=== PATIENT | male | born 1975 | race Caucasian/White ===

== ENCOUNTER 2024-11-04 09:00 | Emergency (ER) | payer BC, OTHER, SELFPAY ==
[2024-11-04 09:15] VITALS: BP 188/99
--- NOTE | 2024-11-04 10:16 | ED.GENMED ---
History of Present Illness
General
Chief Complaint: Musculo-Skeletal Complaint
Source: patient
Time Seen by Provider: 11/04/24 10:02
History of Present Illness
History of Present Illness:
49-year-old male with no significant past medical history presenting to the emergency department for evaluation of left elbow pain and decreased range of motion after he accidentally tripped last night stating he fell onto the left elbow. Patient
states that he was having pain and tenderness with the range of motion. Denies any history of previous injury or surgery. No focal weakness or numbness. No other injuries sustained.
Past History
Past History
ED Past Medical History: None
ED Past Surgical History: None
Social History
Tobacco: Non-smoker
Alcohol: Occasional
Drug: None
Personal: Single
Living: with family
Review of Systems
Review of Systems
All Other Systems: ROS reviewed and negative except as documented in HPI and ROS
Phy Exam
Physical Exam
Physical Exam:
GENERAL: Alert , in no apparent distress
EYE: conjunctiva clear
Head: Normocephalic atraumatic
NECK: Supple,
ENT: mmm.
LUNGS: no acute respiratory distress
NEUROLOGICAL: Alert and oriented
SKIN: Warm and dry, skin intact.
MUSCULOSKELETAL: Left upper extremity: No obvious deformity however there is some mild soft tissue swelling just over the olecranon with tenderness at the proximal portion of the olecranon. Patient is able to extend elbow to about 45 degrees and
then starts to develop pain. No pain with pronation or supination. Extremity is otherwise warm and well-perfused and neurovascularly intact
PSYCH: Normal and appropriate interaction.
Scores
Heart Failure Risk
Heart Failure Risk Score: Not Applicable
Heart Score for Chest Pain Patients
STEMI patient?: Not applicable
Withdrawal Assessment of Alcohol
Withdrawal Assessment Completed?: Not applicable
Course
Orders/Labs/Results
Orders:
Orders
11/04/24 09:17
Elbow, 3 view, Left [CR Elbow - Left Min 3 Views ] Urgent
Comment:
Reason For Exam: pain, fall
11/04/24 10:16
Sling Left-Treatment ONCE
Vital Signs
Initial and Last Documented VS:
Initial Vital Signs
Temp Pulse Resp BP Pulse Ox
98.4 F 72 18 188/99 100
11/04/24 09:15 11/04/24 09:15 11/04/24 09:15 11/04/24 09:15 11/04/24 09:15
Last Documented Vital Signs
Temp Pulse Resp BP Pulse Ox
98.4 F 72 18 188/99 100
11/04/24 09:15 11/04/24 09:15 11/04/24 09:15 11/04/24 09:15 11/04/24 09:15
MDM/Problems Addressed
Differential Diagnosis Includes:
Sprain, contusion, fracture
MDM/Problems Addressed:
49-year-old male presenting to the emergency department for evaluation of left elbow pain following an accidental trip and fall last night, diminished range of motion this morning. X-ray ordered from triage which does show a joint effusion but no
obvious fracture seen. Discussed these results with patient possibility for an occult fracture. Will place in sling. NSAIDs/Tylenol as needed for pain. Information for orthopedics provided. Stable for discharge home.
*Radiology
Radiology exam reviewed: preliminary read by ED provider
*Pulse Oximetry
Patient hypoxic: no
*Critical Care Note
Total Time (30-74mins, 75-104mins- exclusive of procedures): Not Applicable
ED Attending Note
-
Portions of this chart may have been created with voice recognition software.� Occasional wrong word or��sound alike� substitutions may have occurred due to the inherent limitations of voice recognition software.
Discharge Plan
Departure
Patient Disposition: Home (Routine Discharge)
Date of Disposition: 11/04/24
Time of Disposition: 10:16
Patient with high blood pressure during this ER visit?: Yes
Discharge Problem:
Effusion of elbow joint, left
Instructions: Elbow Sprain (DC)
Referrals:
Livan Mi MD [Active] - (Ortho - Please call for appointment)
Temitope Bauman MD [Family Provider] -
Interventions
Interventions:
*Risk Screen - Suicide Last Done: 11/04/24 09:15
*General Assessment Last Done: 11/04/24 09:15
*Neglect/Abuse Screening Last Done: 11/04/24 09:15
*Nursing Disposition Last Done: 11/04/24 11:08
ED-Musculoskeletal Assessment Last Done: 11/04/24 10:20
Discharge Date and Time
Discharge Date/Time: 11/04/24 11:09
Print Language: NICARAGUAN
--- NOTE | 2024-11-04 10:49 | EDRN ---
Sling applied by Tereza FLEMING
== END 2024-11-04 11:09 | disposition home or self-care (01) ==
LOC: EMR 09:00
PROVIDERS: EMERGENCY PHYSICIAN Student in an Organized Health Care Education/Training Program; FAMILY PHYSICIAN Internal Medicine
DX: S59.902A Unspecified injury of left elbow, initial encounter (principal); W01.0XXA Fall on same level from slipping, tripping and stumbling without subsequent striking against object, initial encounter; M25.422 Effusion, left elbow
CPT/HCPCS: 99283; 73080

== ENCOUNTER 2024-12-24 15:17 | Inpatient (IN) | payer OTHER, SELFPAY ==
[2024-12-24 11:21] VITALS: BP 137/96
[2024-12-24 11:39] LABS: % Basophils 0.8 % (0-2); % Immature Granulocytes 0.2 % (0-0.5); % Lymphocytes 29.9 % (20.5-51.1); % Neutrophils 62.1 % (42.2-75.2); Absolute Eosinophils 0.1 10^3/uL (0-0.7); Absolute Lymphocytes 1.4 10^3/uL (1.2-3.4); Absolute Monocytes 0.3 10^3/uL (0.1-0.6); Hematocrit 23.4 % (39.0-52.0); Hemoglobin 8.1 g/dL (13.0-18.0); Mean Corp Hgb Conc. 34.6 g/dL (33.0-37.0); Mean Corpuscular Hgb 31.2 pg (27.0-31.0); Mean Platelet Volume 9.6 fL (7.4-10.4); Nucleated Red Blood Cells % 0 % (-); Platelet Count 252 10^3/uL (130-400); Red Cell Dist. Width 12.3 % (11.5-14.5); White Blood Cell Count 4.8 10^3/uL (4.8-10.8)
[2024-12-24 12:15] LABS: ALT (SGPT) 18 U/L (0-50); AST (SGOT) 19 U/L (17-59); Albumin 3.9 g/dl (3.5-5.0); Alkaline Phosphatase 56 U/L (38-126); Blood Urea Nitrogen 31 mg/dl (9-20); Calcium 8.7 mg/dl (8.4-10.2); Carbon Dioxide 27 mmol/L (22-30); Chloride 104 mmol/L (98-107); Glucose 101 mg/dl (70-99); Potassium 4.5 mmol/L (3.5-5.1); Sodium 137 mmol/L (135-145); Total Bilirubin < 0.1 mg/dl (0.2-1.3); Total Protein 5.7 g/dl (6.3-8.2); eGFR > 60.00
[2024-12-24 12:19] LABS: Troponin I < 0.012 ng/ml
--- NOTE | 2024-12-24 14:00 | ED.GENMED ---
History of Present Illness
General
Chief Complaint: Breathing Problem
Source: patient
Time Seen by Provider: 12/24/24 13:27
History of Present Illness
History of Present Illness:
49-year-old male presents to the emergency room complaining of short of breath and fatigue which developed about 4 days ago. Patient states that he had black loose stool that developed on Saturday. On Saturday he was feeling quite fatigued and short
of breath with exertion. The black stool has continued though less frequently. Today states his stool seems normal other than being black. He denies any abdominal pain. He does have some intermittent heartburn for which he uses Protonix 2 or 3
times a week. Heartburns been more frequent over the past 2 weeks. He denies daily alcohol use. He does not take any oral anticoagulants. He does not take NSAIDs. He occasionally uses aspirin perhaps once a week.
Past History
Past History
ED Past Medical History: None
ED Past Surgical History: None
Social History
Tobacco: Non-smoker
Alcohol: Occasional
Drug: None
Personal: Single
Living: with family
Phy Exam
Physical Exam
Physical Exam:
General: Awake, Alert, Oriented X3. No acute distress.
Vitals: unremarkable
Head: Atraumatic
Eyes: Pupils equal, EOMI
Throat: Airway intact, no exudates
Neck: Trachea midline
Lungs: Clear and equal b/l
Heart: Regular rate, no murmurs
Abd: Soft, Nontender, No pulsatile mass
Rectal: Black heme positive stool
Neuro: Nonfocal
Skin: Warm, dry, no rash
Extremities: pulses equal b/l, no edema
Scores
Heart Failure Risk
Heart Failure Risk Score: Not Applicable
Course
Orders/Labs/Results
Orders:
Orders
12/24/24 Breakfast
NPO
Allow oral meds: Yes
Allow clear liquids: Sips of Clears
12/24/24 11:15
Electrocardiogram (*1) Urgent
Reason for Study: Shortness of Breath
EKG- Treatment ONCE
12/24/24 11:29
Complete Blood Count/With Diff Urgent
Comprehensive Metabolic Panel Urgent
Ferritin Routine
Comment: ADD ON
Troponin I Urgent
12/24/24 13:51
Cardiac Monitoring- Treatment ONCE
Pantoprazole 80 mg/100 ml Nss [Protonix] 80 mg in 100 ml IV NOW
Pantoprazole [Protonix IV] 80 mg IV NOW STA
12/24/24 13:52
IV Insert/Care/Rem.- Treatment PRN
12/24/24 14:08
Type+Screen Urgent
12/24/24 14:42
Admit/Transfer Patient As Directed
Co-Sign Provider:
Level of Care: Inpatient admission
Assign to:: Medical/Surgical
Physician / Group: saman
Diagnosis: UGIB
Reason for Hospitalization: UGIB
Expected length of stay greater than two midnights?: Yes
ELOS- Estimated Length of Stay in days: 2
I certify the patient meets the requirements for IP care: Yes
12/24/24 14:43
Code Status As Directed
Resuscitation Status: Full Code
PRN Pain Medication Management As Directed
May give lesser potent ordered pain med per pt: Yes
preference::
Protocol:: Medication orders for pain may be administered in a
manner that supports deferring to patient preference
when the pt is:
- Requesting an ordered lesser potent pain medication.
Least to most potent pain medications are defined
as: acetaminophen < NSAID < tramadol < opioids
(morphine, oxycodone, hydromorphone).
- Requesting a lesser dose of the same medication IF
ORDERED.
- Requesting a less intrusive route of administration
if both routes are prescribed by the provider (PO <
IV).
12/24/24 Dinner
Clear Liquid
At Your Request: Full Participation
12/24/24 15:16
ABO2 Urgent
BBK Wristband Number:
Associate notified that ABO2 has been ordered: [id number]
Date: 12/24/24
Time: 14:24
Clerical Associate ID: [id number]
B12 [Vitamin B12] Urgent
Folate Urgent
Iron Urgent
TIBC [Total Iron Binding] Urgent
12/24/24 17:35
GASTROINTESTINAL CONSULT Routine
Consulting Provider: Natalie Gutierrez
Was physician already notified: Yes
Activity As Directed
Activity Level: As Tolerated
Pneumatic Compression Sleeves As Directed
Type: Knee high
Vital Signs As Directed
Frequency: Per unit guidelines
DX Deep Vein Thrombosis Video Routine
12/24/24 23:50
Pantoprazole 80 mg/100 ml Nss [Protonix] 80 mg in 100 ml IV Q10H
12/25/24 06:00
Complete Blood Count/With Diff IN AM
Comprehensive Metabolic Panel IN AM
12/25/24 08:00
Losartan [Cozaar] 50 mg PO DAILY
Abnormal Lab Results
12/24/24
11:29
RBC 2.60 L 10^6/uL
(4.70-6.10)
Hgb 8.1 L g/dL
(13.0-18.0)
Hct 23.4 L %
(39.0-52.0)
MCH 31.2 H pg
(27.0-31.0)
BUN 31 H mg/dl
(9-20)
Glucose 101 H mg/dl
(70-99)
Total Bilirubin < 0.1 L mg/dl
(0.2-1.3)
Total Protein 5.7 L g/dl
(6.3-8.2)
12/24/24 11:29
12/24/24 11:29
Vital Signs
Initial and Last Documented VS:
Initial Vital Signs
Temp Pulse Resp BP Pulse Ox
98.4 F 94 18 137/96 100
12/24/24 11:21 12/24/24 11:21 12/24/24 11:21 12/24/24 11:21 12/24/24 11:21
Last Documented Vital Signs
Temp Pulse Resp BP Pulse Ox
97.8 F 71 14 165/94 98
12/24/24 17:40 12/24/24 17:40 12/24/24 17:40 12/24/24 17:40 12/24/24 17:58
MDM/Problems Addressed
Differential Diagnosis Includes:
gastritis, peptic ulcer dz, duodenal ulcer
MDM/Problems Addressed:
Patient presents with shortness of breath on exertion, black stools. He is found to have significant anemia here. Hemoglobin is 8.1. His indices are normal suggesting this is less likely a chronic anemia. Overall presentation seems most
consistent with an upper GI bleed. Protonix bolus and infusion initiated. Will hold off on transfusion at this time given the patient's age and lack of other medical problems. He did sign consent for blood in case his hemoglobin drops further.
GI consultation placed for potential EGD.
*Pulse Oximetry
Patient hypoxic: no
*EKG
Interpreted by ED Provider?: Yes
Heart Rate: 81
Rate: normal
Rhythm: sinus
[place]: normal axis
Interval: normal interval
QRS Pattern: normal QRS
Ischemia: no ischemia
*Sheeting Puller Interpretation
Interpretation: normal
Rhythm: sinus
*Critical Care Note
Total Time (30-74mins, 75-104mins- exclusive of procedures): 40 min
comment:
Critical care statement: A total of 40 minutes of critical care time was provided for this patient. This includes management of unstable vital signs, evaluation of the patient at bedside, reviewing the patient's pertinent medical records, discussion
with consultants, review of old EKGs and review of pertinent medical records. This time with separate from time utilized to perform the aforementioned documented procedures
Patient Management
Social determinants of health affecting care: Strong social support
ED Attending Note
-
Portions of this chart may have been created with voice recognition software.� Occasional wrong word or��sound alike� substitutions may have occurred due to the inherent limitations of voice recognition software.
Discharge Plan
Departure
Patient Disposition: Admit
Date of Disposition: 12/24/24
Time of Disposition: 14:06
Admit to: IMU
Presentation/result/management discussed w/ accepting MD/DO: Hospitalist
Condition: Fair
Discharge Problem:
Acute upper GI bleeding
Interventions
Interventions:
*Risk Screen - Suicide Last Done: 12/24/24 11:21
*General Assessment Last Done: 12/24/24 11:21
*Neglect/Abuse Screening Last Done: 12/24/24 11:21
ED- Fall Risk Assessment Last Done: 12/24/24 17:29
*ED COVID-19 Vaccine History Last Done: 12/24/24 17:29
*Nursing Disposition Last Done: 12/24/24 17:29
ED- Cardiac Assessment Last Done: 12/24/24 14:05
ED- Pulmonary Assessment Last Done: 12/24/24 14:05
Discharge Date and Time
Discharge Date/Time: 12/24/24 17:29
[2024-12-24] MEDS: PROTONIX IV 80 MG IV (14:11)
[2024-12-24] MEDS: PROTONIX 100 IV ×2 (14:16→23:19)
[2024-12-24 14:18] VITALS: BP 146/92
--- NOTE | 2024-12-24 14:52 | HPS.HSE ---
Family Physician
-
Family Physician: Temitope Bauman
Chief Complaint
-
black stool
History of Present Illness
49-year-old male past medical history of hypertension, Raynaud's presenting with shortness of breath and fatigue starting 4 days ago. He had black loose stool which developed 4 days ago. 3 days ago he was feeling fatigued and having shortness of
breath with exertion and dizziness. Black stool has continued. Denies abdominal pain. He has intermittent heartburn for which he uses Protonix 2-3 times a week. This has been getting more frequent recently. He denies daily alcohol use but
drinks alcohol few times a week. Denies NSAID or anticoagulants. Denies nausea or vomiting.
His father had esophageal cancer. Patient observe had an endoscopy 8 years ago for screening which was unremarkable. He denies any difficulty swallowing.
Medical History
Past Medical History
Past Medical History: Reports Other (hypertension, Raynaud's)
Past Surgical History: Reports None
Social History
Tobacco: Non-smoker
Alcohol: Occasional
Drug: None
Family History
Family History: Not pertinent
Allergies / Home Medications
Allergies reflects when Allergies were last updated in [employer].
Home Medications with original date entered in [employer]
Allergy/Medication List:
Allergies
Allergy/AdvReac Type Severity Reaction Status Date / Time
No Known Allergies Allergy Verified 12/24/24 11:20
Home Medications
losartan 50 mg tablet 50 mg PO DAILY 12/24/24
Review of Systems
-
History Source: Patient
A 12 point ROS was completed and negative except as noted: Yes
Constitutional: Reports No Symptoms
EENT: Reports No Symptoms
Respiratory: Reports See HPI
Cardiac: Reports No Symptoms
Abdomen/GI: Reports See HPI
: Reports No Symptoms
Musculoskeletal: Reports No Symptoms
Skin: Reports No Symptoms
Neurological: Reports No Symptoms
Endocrine: Reports No Symptoms
Hematologic/Lymphatic: Reports No Symptoms
Psych: Reports No Symptoms
Physical Exam
Vital Signs
Vital Signs
Temp Pulse Resp BP Pulse Ox
98.4 F 76 18 146/92 100
12/24/24 11:21 12/24/24 14:30 12/24/24 14:36 12/24/24 14:18 12/24/24 11:21
Physical Exam
General: Well Developed, Well Nourished and No Apparent Distress
HEENT: NormoCephalic, Moist mucous membranes and Atraumatic
Respiratory: Clear
Cardiac: S1/S2 and Regular Rhythm; No Murmur or Rub
GI: Soft, Non Tender, Non Distended and Normal Bowel Sounds; No Organomegaly
Rectal: Deferred by Provider
Musculoskeletal: No Clubbing, No Cyanosis and No Edema
Skin: No Rash
Neuro: Nonfocal/grossly intact
Laboratory Results
-
12/24/24 11:29
12/24/24 11:29
Laboratory Results
Total Bilirubin < 0.1 mg/dl (0.2-1.3) L 12/24/24 11:29
AST 19 U/L (17-59) 12/24/24 11:29
ALT 18 U/L (0-50) 12/24/24 11:29
Alkaline Phosphatase 56 U/L (38-126) 12/24/24 11:29
Troponin I < 0.012 ng/ml 12/24/24 11:29
Data Reviewed
-
Lab Data: Labs Reviewed by me
Old Records: Reviewed
Impression/Plan
-
IMPRESSION:
PLAN:
# Symptomatic acute blood loss anemia secondary to upper GI bleeding
-Hemoglobin of 8.1
-Type and screen
-Check iron studies, B12 and folate
-Protonix drip
-GI consulted
-Clear liquids, n.p.o. past midnight for EGD tomorrow
Essential hypertension
-Continue losartan
Raynaud's disease
Full code
DVT prophylaxis�SCDs
N.p.o. past midnight
[2024-12-24 15:00] VITALS: BP 149/78
[2024-12-24 15:41] LABS: Iron 100 ug/dl (49-181)
[2024-12-24 15:50] LABS: Percent Saturation 32 % (20-50); Total Iron Binding Capacity 304 ug/dl (261-462)
--- NOTE | 2024-12-24 15:52 | CON.GI ---
Addendum entered and electronically signed by Natalie Gutierrez MD 12/24/24 16:55:
Hb was 13.7 last year with his PCP
Original Note:
Consultation
-
Date/Time Consultation Requested: 12/24/2024
Date/Time Consultation Performed: 12/24/2024
Requesting Provider: ED
Performing Provider: Brock JARAMILLO
Reason for Consultation: black stool
Medical History
Chief Complaint / HPI
Chief Complaint: Black stool
History of Present Illness:
49-year-old male with past medical history of hypertension, Raynaud's presenting with shortness of breath and fatigue for the last 4 days. He claims he was having black stool for the last 3 to 4 days. Denies any abdominal pain/nausea/vomiting. He
has intermittent reflux symptoms which he takes PPI as needed. Last EGD 8 years back. He cannot recall any peptic ulcer at that time. Denied NSAIDs use.
Father with history of esophageal cancer.
Past Medical History
Past Medical History: HTN and Other (Raynaud's)
Social History
Tobacco: Non-Smoker
Alcohol: Occasional
Drug: None
Allergies / Home Medications
Allergy/AdvReac Type Severity Reaction Status Date / Time
No Known Allergies Allergy Verified 12/24/24 11:20
�Medication �Instructions �Recorded
losartan 50 mg tablet 50 mg PO DAILY 12/24/24
Review of Systems
-
All other systems: A 12 pt ROS was Negative except as stated above in HPI
Vital Signs
Temp Pulse Resp BP Pulse Ox
98.4 F 84 15 149/78 100
12/24/24 11:21 12/24/24 15:30 12/24/24 15:30 12/24/24 15:00 12/24/24 11:21
Physical Exam
Exam
General: Well Developed, Well Nourished and No Apparent Distress
Respiratory: Clear
Cardiac: S1/S2
GI: Soft, Non Tender and Non Distended
Results
WBC 4.8 10^3/uL (4.8-10.8) 12/24/24 11:
Hgb 8.1 g/dL (13.0-18.0) L 12/24/24 11:29
Hct 23.4 % (39.0-52.0) L 12/24/24 11:
MCV 90.0 fL (80.0-94.0) 12/24/24 11:
Plt Count 252 10^3/uL (130-400) 12/24/24 11:
Absolute Neuts (auto) 3.0 10^3/uL (1.4-6.5) 12/24/24 11:29
Sodium 137 mmol/L (135-145) 12/24/24 11:
Potassium 4.5 mmol/L (3.5-5.1) 12/24/24 11:
Chloride 104 mmol/L (98-107) 12/24/24 11:
Carbon Dioxide 27 mmol/L (22-30) 12/24/24 11:
BUN 31 mg/dl (9-20) H 12/24/24 11:29
Creatinine 0.9 mg/dL (0.7-1.3) 12/24/24 11:
Calcium 8.7 mg/dl (8.4-10.2) 12/24/24 11:
Total Bilirubin < 0.1 mg/dl (0.2-1.3) L 12/24/24 11:29
AST 19 U/L (17-59) 12/24/24 11:
ALT 18 U/L (0-50) 12/24/24 11:
Alkaline Phosphatase 56 U/L (38-126) 12/24/24 11:
Diagnostic Image Results:
Prior GI Procedures:
EGD: 8 years back as per patient. He was reassured at that time
Colonoscopy: None
Assessment / Plan
-
49-year-old male with history of intermittent GERD is admitted with fatigue/shortness of breath. ED -rectal exam Black heme positive stool. Labs - Hemoglobin 8.1. MCV 90. WBC 4.8/platelets 252. Liver test normal. Serum iron 100/percentage
saturation 32/TIBC 304. BUN was 31
-- Symptomatic acute anemia/black stool-rule out upper GI bleeding. No baseline Hb available
-- Chronic GERD. Last EGD 8 years back
-- Family history of esophageal cancer-father
-- HTN
plan
Clear liquid diet
Continue monitor H&H
will add ferritin
Continue Protonix drip
N.p.o. after midnight
EGD tomorrow
Total Time Spent with Patient (in minutes): 55
-
-
Thank you for consultation and allowing me to participate in the patient's care. Please call the auto air conditioning installer GI physician during the after hours with any questions or concerns.
[2024-12-24 16:00] VITALS: BP 155/100
[2024-12-24 16:49] LABS: Folate 8.4 ng/ml (2.76-20); Vitamin B12 339 pg/ml (239-931)
[2024-12-24 17:38] VITALS: BMI 31.9
[2024-12-24 17:40] VITALS: BP 165/94
[2024-12-24 18:31] LABS: Ferritin 43.3 ng/ml (17.9-464.0)
--- NOTE | 2024-12-24 18:31 | PTCARENOTE ---
Pt arrived to floor from ED via stretcher. Ambulated to unit bed. Protonix gtt infusing. Pt ordered clear liquid diet for dinner.
[2024-12-24 23:06] VITALS: BP 131/78
[2024-12-25] VITALS (8 sets, daily range): BP systolic 16–163; BP diastolic 70–98
[2024-12-25 07:28] LABS: % Basophils 0.8 % (0-2); % Eosinophils 2.8 % (0-6); % Immature Granulocytes 0.3 % (0-0.5); % Lymphocytes 32.6 % (20.5-51.1); % Monocytes 6.7 % (1.7-9.3); % Neutrophils 56.8 % (42.2-75.2); Absolute Eosinophils 0.1 10^3/uL (0-0.7); Absolute Lymphocytes 1.3 10^3/uL (1.2-3.4); Absolute Monocytes 0.3 10^3/uL (0.1-0.6); Absolute Neutrophils 2.2 10^3/uL (1.4-6.5); Hematocrit 22.9 % (39.0-52.0); Hemoglobin 8.1 g/dL (13.0-18.0); Mean Corp Hgb Conc. 35.4 g/dL (33.0-37.0); Mean Corpuscular Hgb 31.2 pg (27.0-31.0); Mean Corpuscular Volume 88.1 fL (80.0-94.0); Mean Platelet Volume 9.8 fL (7.4-10.4); Nucleated Red Blood Cells % 0 % (-); Platelet Count 253 10^3/uL (130-400); Red Cell Dist. Width 12.5 % (11.5-14.5); White Blood Cell Count 3.9 10^3/uL (4.8-10.8)
[2024-12-25 08:09] LABS: ALT (SGPT) 17 U/L (0-50); AST (SGOT) 19 U/L (17-59); Albumin 3.7 g/dl (3.5-5.0); Alkaline Phosphatase 54 U/L (38-126); Blood Urea Nitrogen 18 mg/dl (9-20); Calcium 8.8 mg/dl (8.4-10.2); Carbon Dioxide 28 mmol/L (22-30); Chloride 103 mmol/L (98-107); Estimated Creatinine Clearance 106 ml/min; Glucose 109 mg/dl (70-99); Potassium 4.2 mmol/L (3.5-5.1); Sodium 138 mmol/L (135-145); Total Bilirubin 0.4 mg/dl (0.2-1.3); Total Protein 5.7 g/dl (6.3-8.2); eGFR > 60.00
--- NOTE | 2024-12-25 08:09 | W.PN.HOSP.TC ---
Today's Communication/Plan
-
see bold
Assessment / Plan
Assessment / Plan
Gen: NAD, AAOx3.
Eyes: EOMI, PERRLA, no scleral icterus.
Neck: supple.
CV: RRR, +S1/S2, no m/r/g.
Resp: CTAB, no rales, wheezes, or rhonchi.
Abd: +BS, soft, NT, ND
Skin: No rashes.
Neuro: CN 2-12 intact, non-focal.
Psych: Normal mood and affect.
Symptomatic acute blood loss anemia due to upper GI bleeding
-Hb stable
-cont PPI gtt
-EGD today
-iron studies, B12 and folate normal
Other problems:
Essential hypertension: Continue losartan
Raynaud's disease
FULL/SCDs
Anticipated Discharge: Within 24 hours
Subjective/Interval History
-
Date of Service: December 25, 2024
No BM today. No new complaints.
Objective Data
-
Labs:
Laboratory Results
12/25/24
07:04
WBC 3.9 L
Hgb 8.1 L
Hct 22.9 L
Plt Count 253
Sodium Pending
Potassium Pending
Chloride Pending
Carbon Dioxide Pending
BUN Pending
Creatinine Pending
Glucose Pending
Calcium Pending
Total Bilirubin Pending
AST Pending
ALT Pending
Alkaline Phosphatase Pending
Vital Signs:
Vital Signs
Temp Pulse Resp BP Pulse Ox
97.8 F 75 14 163/98 99
12/25/24 07:25 12/25/24 07:25 12/25/24 07:25 12/25/24 07:25 12/25/24 07:25
[2024-12-25] MEDS: COZAAR 50 MG PO (08:51)
[2024-12-25] MEDS: PROTONIX 100 IV ×2 (10:40→18:34)
--- NOTE | 2024-12-25 14:58 | CM ---
CM reviewed medical records. CM met with patient's . No history of VN, DME or SNF. Patient is active with his PCP. Patient uses [facility] for medication services.
PLAN: home no needs
[2024-12-26] MEDS: PROTONIX 100 IV (05:35)
[2024-12-26 07:00] VITALS: BP 142/100
--- NOTE | 2024-12-26 07:40 | W.PN.HOSP.TC ---
Today's Communication/Plan
-
d/c
Assessment / Plan
Assessment / Plan
Gen: NAD, AAOx3.
Eyes: EOMI, PERRLA, no scleral icterus.
Neck: supple.
CV: remains RRR, +S1/S2, no m/r/g.
Resp: remains CTAB, no rales, wheezes, or rhonchi.
Abd: remains +BS, soft, NT, ND
Skin: No rashes.
Neuro: CN 2-12 intact, non-focal.
Psych: Normal mood and affect.
EGD: Well-healed, esophageal ulcers with no bleeding
found at the GE junction. Not biopsied due to concern
for rebleeding.
- Otherwise, normal proximal esophagus and mid
esophagus.
- Medium-sized hiatal hernia without any Neo's
lesions/ulcerations.
- Normal stomach on direct and retroflexion views.
- Normal examined duodenum up to the third portion.
- The examination was otherwise normal without any old
or fresh blood throughout the examined upper GI tract
- No specimens collected.
Symptomatic acute blood loss anemia due to upper GI bleeding due to esophageal ulcers:
-Hb stable
-EGD above
-stop PPI gtt, transition to PPI BID
-iron studies, B12 and folate normal
Other problems:
Essential hypertension: Continue losartan
Raynaud's disease
Obesity due to excess calories
FULL/SCDs
Anticipated Discharge: Today
Subjective/Interval History
-
Date of Service: December 26, 2024
No new complaints. No melena or abd pain.
Objective Data
-
Vital Signs:
Vital Signs
Temp Pulse Resp BP Pulse Ox
97.8 F 72 18 128/70 96
12/25/24 23:51 12/25/24 23:51 12/25/24 23:51 12/25/24 23:51 12/25/24 23:51
I&O
12/25/24 12/26/24 12/27/24
06:59 06:59 06:59
Intake Total 240 / 240
Output Total 900 / 900
Balance -660 / -660
[2024-12-26] MEDS: COZAAR 50 MG PO (08:53)
[2024-12-26] MEDS: PROTONIX IV 40 MG IV (08:53)
[2024-12-26] MEDS: NSS (PRESERVATIVE FREE) 10 ML IV (08:54)
--- NOTE | 2024-12-26 09:25 | CM ---
CM reviewed medical records. Plan for discharge with no needs
PLAN: home no needs.
--- NOTE | 2024-12-26 14:59 | W.DCSUMMARY ---
Discharge Summary
Discharge Data
Date of Admission: 12/24/24
Date of Discharge: 12/26/24
-
Pending Results: No
Hospital Course
Primary diagnoses:
Symptomatic acute blood loss anemia due to upper GI bleeding due to esophageal ulcers
Secondary diagnoses:
Essential hypertension
Raynaud's disease
Obesity due to excess calories
Consultants:
Imaging/procedures:
EGD: Well-healed, esophageal ulcers with no bleeding
found at the GE junction. Not biopsied due to concern
for rebleeding.
- Otherwise, normal proximal esophagus and mid
esophagus.
- Medium-sized hiatal hernia without any Neo's
lesions/ulcerations.
- Normal stomach on direct and retroflexion views.
- Normal examined duodenum up to the third portion.
- The examination was otherwise normal without any old
or fresh blood throughout the examined upper GI tract
- No specimens collected.
Hospital course: 49-year-old male who presented with chief complaint of melena as outlined in the H&P done on admission. Patient's hemoglobin was 8.1 on admission remained stable while hospitalized. He was placed on a Protonix drip. EGD above.
Iron studies, B12, and folate were normal. He was transitioned to Protonix twice daily and discharged in medically stable condition.
Discharge Plan
-
Patient Disposition: Home (Routine Discharge)
Discharge Diagnosis/Procedures: Symptomatic acute blood loss anemia due to upper GI bleeding due to esophageal ulcers
Condition: Good
Diet: No restrictions
Activity: No restrictions
Driving Restrictions: As prior to admission
Referrals:
Natalie Gutierrez MD [Active] - in four to six weeks
Temitope Bauman MD [Family Provider] - in less than 1 week
Prescriptions:
New
pantoprazole [Protonix] 40 mg tablet,delayed release (DR/EC)
40 mg PO BID Qty: 60 0RF
Continued
losartan 50 mg Tablet
50 mg PO DAILY
Discharge Orders:
Discharge Patient (As Directed); Ordered 12/26/24
Ordered By: Alvin Hatch
Discharge Date and Time
Discharge Date/Time: 12/26/24 09:56
Print Language: ISRAELI
== END 2024-12-26 09:56 | disposition home or self-care (01) | DRG 381 ==
LOC: 1 ACUTE 15:17
PROVIDERS: Emergency Medicine; Student in an Organized Health Care Education/Training Program; ADMITTING PHYSICIAN Hospitalist; ATTENDING PHYSICIAN Internal Medicine; CONSULT PHYSICIAN Internal Medicine Gastroenterology; EMERGENCY PHYSICIAN Emergency Medicine; FAMILY PHYSICIAN Internal Medicine
PROC: 0DJ08ZZ Inspection of Upper Intestinal Tract, Via Natural or Artificial Opening Endoscopic (ICD-10-PCS; 2024-12-25)
DX: K22.11 Ulcer of esophagus with bleeding (principal); D62 Acute posthemorrhagic anemia; I10 Essential (primary) hypertension; I73.00 Raynaud's syndrome without gangrene; K21.9 Gastro-esophageal reflux disease without esophagitis; K44.9 Diaphragmatic hernia without obstruction or gangrene; E66.09 Other obesity due to excess calories; Z68.31 Body mass index [BMI] 31.0-31.9, adult
CPT/HCPCS: 80053; 82607; 82728; 82746; 83540; 83550; 84484; 85025; 86850; 86900; 86901; 93005; 96374; 99291

== ENCOUNTER 2025-03-18 06:23 | Day surgery (SDC) | payer OTHER, SELFPAY | END 2025-03-18 12:46 | disposition home or self-care (01) | LOC: GI 06:23 | PROVIDERS: ATTENDING PHYSICIAN Student in an Organized Health Care Education/Training Program | DX: J38.7 Other diseases of larynx (principal); K22.89 Other specified disease of esophagus; K44.9 Diaphragmatic hernia without obstruction or gangrene; K31.89 Other diseases of stomach and duodenum; K27.3 Acute peptic ulcer, site unspecified, without hemorrhage or perforation; K21.00 Gastro-esophageal reflux disease with esophagitis, without bleeding; Z80.0 Family history of malignant neoplasm of digestive organs | CPT/HCPCS: 43239; 88305; 88342 ==